=== PATIENT | male | born 1965 | race American Indian/Alaskan Native ===

== ENCOUNTER 2019-05-07 17:38 | Inpatient (IN) | payer BC ==
--- NOTE | 2019-05-07 17:48 | Emergency Department Report ---
ED Neuro Deficit HPI - General Stated Complaint: STROKE Source: patient, EMS Mode of arrival: Stretcher Limitations: No Limitations - History of Present Illness Initial Comments: 53-year-old male with a past medical history of hypertension and obesity presents to the hospital with stroke symptoms. Symptoms onset about 5:10-5:15 PM. Patient was outside grilling in the heat and was done cooking and came inside to cool off. He sat on the couch and his noticed that he was less responsive. He was diaphoretic and with slurred speech but would not make eye contact with his . Upon EMS arrival patient had a left sided weakness and cannot lift up his left arm and had slurred speech with left-sided facial droop. They did not test leg strength prior to arrival. Half way in route to the hosp ital patient's speech cleared and weakness improved. Patient now presents to the hospital with resolution of neurologic symptoms. Accu-Chek 140 upon arrival. Patient does not take an aspirin daily. He did have 2 beers and did smoke cigarettes today. Patient has been compliant with his blood pressure medication last dose today. No previous history of CVA or cardiac disease. PMD: Dr Laguna - Related Data Home Medications: Home Medications Medication Instructions Recorded Confirmed Last Taken Amlodipine Besylate/Valsartan 1 each PO QDAY 05/07/19 05/07/19 05/07/19 [Amlodipine-Valsartan 5-160 mg] Allergies/Adverse Reactions: Allergies Allergy/AdvReac Type Severity Reaction Status Date / Time No Known Allergies Allergy Unverified 05/07/19 17:43 ED Review of Systems ROS: Stated complaint: STROKE Other details as noted in HPI Comment: All other systems reviewed and negative ED Past Medical Hx - Medications Home Medications: Home Medications Medication Instructions Recorded Confirmed Last Taken Type Amlodipine Besylate/Valsartan 1 each PO QDAY 05/07/19 05/07/19 05/07/19 History [Amlodipine-Valsartan 5-160 mg] ED Neuro Physical Exam - General Suspected Stroke: Yes - NIHSS Assessment Interval: Baseline 1a. Level of Consciousness: alert/keenly responsive 1b. LOC Questions: answers both correctly 1c. LOC Commands: performs tasks correctly 2. Best Gaze: normal 3. Visual: no visual loss 4. Facial Palsy: normal symmetrical movement 5b. Motor Arm Right: no drift 5a. Motor Arm Left: no drift 6a. Motor Leg Left: no drift 6b. Motor Leg Right: no drift 7. Limb Ataxia: absent 8. Sensory: normal 9. Best Language: no aphasia 10. Dysarthria: normal 11. Extinction/Inattention: no abnormality Total Score: 0 Stroke Severity: No Stroke Symptoms - Other Other exam information: General: No limitations, patient is alert in no acute distress Head exam: Atraumatic, normocephalic Eyes exam: Normal appearance, pupils equal reactive to light, extraocular movements intact ENT: Moist mucous membrane, normal oropharynx Neck exam: Normal inspection, full range of motion, no meningismus nontender Respiratory exam: Clear to auscultation bilateral, no wheezes, rales, crackles Cardiovascular: Normal rate and rhythm, normal heart sounds Abdomen: Soft, nondistended, and nontender, with normal bowel sounds, no rebound, or guarding Extremity: Full range of motion normal inspection no deformity Back: Normal Inspection, full range of motion, no tenderness Neurologic: Alert, oriented x3, cranial nerves intact, no motor or sensory deficit Psychiatric: normal affect, normal mood Skin: Warm, dry, intact ED Course Vital Signs 05/07/19 05/07/19 18:16 18:17 Temperature 98.6 F Pulse Rate 90 Respiratory 19 19 Rate Blood Pressure 125/70 [Left] O2 Sat by Pulse 91 91 Oximetry - Consultations Consultation #1: 05/07/19 see Neuro consult note - Lab Data Result diagrams: 05/07/19 18:02 05/07/19 18:02 Lab Results 05/07/19 05/07/19 05/07/19 Range/Units 17:49 18:02 18:02 WBC 11.6 H (4.5-11.0) K/mm3 RBC 4.87 (3.65-5.03) M/mm3 Hgb 15.4 H (11.8-15.2) gm/dl Hct 45.3 (35.5-45.6) % MCV 93 (84-94) fl MCH 32 (28-32) pg MCHC 34 (32-34) % RDW 15.3 H (13.2-15.2) % Plt Count 195 (140-440) K/mm3 Lymph % (Auto) 21.8 (13.4-35.0) % [place] % (Auto) 8.1 H (0.0-7.3) % Eos % (Auto) 1.7 (0.0-4.3) % Baso % (Auto) 1.0 (0.0-1.8) % Lymph # 2.5 (1.2-5.4) K/mm3 [place] # 0.9 H (0.0-0.8) K/mm3 Eos # 0.2 (0.0-0.4) K/mm3 Baso # 0.1 (0.0-0.1) K/mm3 Seg Neutrophils % 67.4 (40.0-70.0) % Seg Neutrophils # 7.9 H (1.8-7.7) K/mm3 PT 13.6 (12.2-14.9) Sec. INR 1.07 (0.87-1.13) APTT 25.0 (24.2-36.6) Sec. Thrombin Time (15.1-19.6) Sec. Sodium (137-145) mmol/L Potassium (3.6-5.0) mmol/L Chloride (98-107) mmol/L Carbon Dioxide (22-30) mmol/L Anion Gap mmol/L BUN (9-20) mg/dL Creatinine (0.8-1.5) mg/dL Estimated GFR ml/min BUN/Creatinine Ratio % Glucose (75-100) mg/dL POC Glucose 140 H (70-105) Calcium (8.4-10.2) mg/dL Troponin T (0.00-0.029) ng/mL 05/07/19 05/07/19 Range/Units 18:02 18:02 WBC (4.5-11.0) K/mm3 RBC (3.65-5.03) M/mm3 Hgb (11.8-15.2) gm/dl Hct (35.5-45.6) % MCV (84-94) fl MCH (28-32) pg MCHC (32-34) % RDW (13.2-15.2) % Plt Count (140-440) K/mm3 Lymph % (Auto) (13.4-35.0) % [place] % (Auto) (0.0-7.3) % Eos % (Auto) (0.0-4.3) % Baso % (Auto) (0.0-1.8) % Lymph # (1.2-5.4) K/mm3 [place] # (0.0-0.8) K/mm3 Eos # (0.0-0.4) K/mm3 Baso # (0.0-0.1) K/mm3 Seg Neutrophils % (40.0-70.0) % Seg Neutrophils # (1.8-7.7) K/mm3 PT (12.2-14.9) Sec. INR (0.87-1.13) APTT (24.2-36.6) Sec. Thrombin Time 14.9 L (15.1-19.6) Sec. Sodium 140 (137-145) mmol/L Potassium 4.1 (3.6-5.0) mmol/L Chloride 98.6 (98-107) mmol/L Carbon Dioxide 28 (22-30) mmol/L Anion Gap 18 mmol/L BUN 18 (9-20) mg/dL Creatinine 1.9 H (0.8-1.5) mg/dL Estimated GFR 45 ml/min BUN/Creatinine Ratio 9 % Glucose 154 H (75-100) mg/dL POC Glucose (70-105) Calcium 9.6 (8.4-10.2) mg/dL Troponin T < 0.010 (0.00-0.029) ng/mL - EKG Data -: EKG Interpreted by Or EKG shows normal: sinus rhythm, axis (qrs 28), QRS complexes (qrsd 97), ST-T waves (lvh with lat t wave inv) When compared to previous EKG there are: previous EKG unavailable - Radiology Data Radiology results: report reviewed CT scan of the brain: INDICATION: neuro deficits <6hrs; sx present upon awakening. TECHNIQUE: Routine CT head without contrast. Sagittal and coronal reformatted i mages were obtained. All CT scans at this location are performed using CT dose reduction for ALARA by means of automated exposure control. COMPARISON: None. FINDINGS: BRAIN / INTRACRANIAL CONTENTS: No acute hemorrhage, mass effect, midline shift, hydrocephalus, or acute, large territorial infarct. Encephalomalacia is seen in the left corpus stratum with compensatory enlargement of left frontal horn. No significant white matter abnormality. CRANIOCERVICAL JUNCTION: No significant abnormality. ORBITS: No significant abnormality of visualized orbits. SINUSES / MASTOIDS: Mucosal thickening is seen in some of the ethmoid air cells and in the right sphenoid sinus. Middle ear cavity and mastoid air cells are normal. ADDITIONAL FINDINGS: None. IMPRESSION: Encephalomalacia in the left corpus stratum I do not see an acute parenchymal lesion in the brain. - Medical Decision Making tia vs heat exhaustion ct unremarkable back to baseline asa given hospitalist informed to admit - Differential Diagnosis TIA, CVA, dehydration, ICH, heat exhaustion, hypoglycemia - Thrombolytic Inclusion/Exclusion Thrombolytic Contraindications: Rapidily Improving s/s Critical Care Time: No Critical care attestation.: If time is entered above; I have spent that time in minutes in the direct care of this critically ill patient, excluding procedure time. ED Disposition Clinical Impression: Transient neurologic deficit Disposition: DC-09 OP ADMIT IP TO THIS HOSP Is pt being admited?: Yes Does the pt Need Aspirin: Yes Condition: Stable Time of Disposition: 18:40 (Dr Castro/hosp)
[2019-05-07 18:10] LABS: Basophils # (Auto) 0.1 K/mm3 (0.0-0.1); Eosinophils # (Auto) 0.2 K/mm3 (0.0-0.4); Eosinophils % (Auto) 1.7 % (0.0-4.3); Hematocrit 45.3 % (35.5-45.6); Hemoglobin 15.4 gm/dl (11.8-15.2); Lymphocytes # (Auto) 2.5 K/mm3 (1.2-5.4); Lymphocytes % (Auto) 21.8 % (13.4-35.0); Mean Corpuscular HGB Conc 34 % (32-34); Mean Corpuscular Volume 93 fl (84-94); Monocytes # (Auto) 0.9 K/mm3 (0.0-0.8); Monocytes % (Auto) 8.1 % (0.0-7.3); Platelet Count 195 K/mm3 (140-440); Red Blood Count 4.87 M/mm3 (3.65-5.03); Red Cell Distribution Width 15.3 % (13.2-15.2)
--- NOTE | 2019-05-07 18:12 | Cat Scan Report ---
CT scan of the brain: INDICATION: neuro deficits <6hrs; sx present upon awakening. TECHNIQUE: Routine CT head without contrast. Sagittal and coronal reformatted images were obtained. A ll CT scans at this location are performed using CT dose reduction for ALARA by means of automated ex posure control. COMPARISON: None. FINDINGS: BRAIN / INTRACRANIAL CONTENTS: No acute hemorrhage, mass effect, midline shift, hydrocephalus, or acu te, large territorial infarct. Encephalomalacia is seen in the left corpus stratum with compensatory enlargement of left frontal horn. No significant white matter abnormality. CRANIOCERVICAL JUNCTION: No significant abnormality. ORBITS: No significant abnormality of visualized orbits. SINUSES / MASTOIDS: Mucosal thickening is seen in some of the ethmoid air cells and in the right sphe noid sinus. Middle ear cavity and mastoid air cells are normal. ADDITIONAL FINDINGS: None. IMPRESSION: Encephalomalacia in the left corpus stratum I do not see an acute parenchymal lesion in the brain. Signer Name: Tamiko Haskins MD Signed: 05/07/2019 6:08 PM Workstation Name: [id number]
[2019-05-07 18:22] LABS: INR 1.07 (0.87-1.13)
--- NOTE | 2019-05-07 18:25 | Consultation ---
History of Present Illness Consult date: 05/07/19 Requesting physician: SUNDAR PENNINGTON Reason for Consult: stroke alert Chief complaint: Left face and arm weakness, now resolved History of present illness: 53 yo male- outside bbq, collapsed, fell down and was altered, lethargic, had left drywall taper helper weak, left face droop, and slurred speech; took BP medication today; around the time they were pulling out he is back to normal per EMS; 1710 hrs LKN; he had 2 beers today and does smoke cigarettes, denies any drug use No h/o stroke; Medications and Allergies Allergies Allergy/AdvReac Type Severity Reaction Status Date / Time No Known Allergies Allergy Unverified 05/07/19 17:43 Physical Examination - Vital Signs Vital Signs: Vital Signs Temp Pulse Resp BP Pulse Ox 98.6 F 90 19 125/70 91 05/07/19 18:16 05/07/19 18:16 05/07/19 18:16 05/07/19 18:16 05/07/19 18:16 - Assessment Assessment Interval: Baseline - Level of Consciousness 1a. Level of Consciousness: alert/keenly responsive - LOC Questions 1b. LOC Questions: answers both correctly - LOC Command 1c. LOC Commands: performs tasks correctly - Best Gaze 2. Best Gaze: normal - Visual 3. Visual: no visual loss - Facial Palsy 4. Facial Palsy: normal symmetrical movement - Motor Arm 5a. Motor Arm Left: no drift 5b. Motor Arm Right: no drift - Motor Leg 6a. Motor Leg Left: no drift 6b. Motor Leg Right: no drift - Limb Ataxia 7. Limb Ataxia: absent - Sensory 8. Sensory: normal - Best Language 9. Best Language: no aphasia - Dysarthria 10. Dysarthria: normal - Extinction and Inattention 11. Extinction/Inattention: no abnormality - Scoring Total Score: 0 Stroke Severity: No Stroke Symptoms Results - Laboratory Findings CBC and BMP: 05/07/19 18:02 Abnormal Lab Findings: Abnormal Labs 05/07/19 05/07/19 17:49 18:02 WBC 11.6 H Hgb 15.4 H RDW 15.3 H [place] % (Auto) 8.1 H [place] # 0.9 H Seg Neutrophils # 7.9 H POC Glucose 140 H - Diagnostic Findings Additional findings: CT head with encephalomalacia in left BG; no bleed Assessment and Plan [facility] Tele[facility] Consult [facility] Impression: r/o stroke vs TIA HTN evidence of old stroke on CT Recommendations: no tpa due to resolved symptoms not an LVO aspirin now and daily MRI brain, MRA H/N echo, fasting lipids, A1C, telemetry quit smoking neurology consult inpatient for w/u d/w ED doc at bedside Rebecca Hooper MD [employer] metrics: date of eval 05/07/19 LKN 1710 door: 1740 ts called 1728 ts connected 1731 NIHSS 1740 Medical Decision Making: - Extensive number of diagnosis or management options are considered above. - Extensive amount of complex data reviewed. - High risk of complication and/or morbidity or mortality are associated with differential diagnostic considerations above. - There may be uncertain outcome and increased probability of prolonged functional impairment or high probability of severe prolonged functional imp airment associated with some of these differential diagnosis. Medical Data Reviewed: 1.Data reviewed include clinical labs, radiology, Medical Tests; 2.Tests results discussed w/performing or interpreting physician; 3.Obtaining/reviewing old medical records; 4.Obtaining case history from another source; 5.Independent review of image, tracing or specimen. Patient was informed the Neurology Consult would happen via[facility]ult by way of interactive audio and video telecommunicationsand consented to receiving care in this manner.
[2019-05-07 18:29] LABS: BUN/Creatinine Ratio 9; Blood Urea Nitrogen 18 mg/dL (9-20); Calcium 9.6 mg/dL (8.4-10.2); Hemolysis Index 7
[2019-05-07] MEDS ORDERED: ASPIRIN PO ONE (18:39)
[2019-05-07] MEDS ORDERED: PERCOCET 5/325 PO PRN (19:50)
[2019-05-07] MEDS ORDERED: TYLENOL PO PRN ×2 (19:50)
[2019-05-07] MEDS ORDERED: DULCOLAX PR PRN (19:50)
[2019-05-07] MEDS ORDERED: PHENERGAN PR PRN (19:50)
[2019-05-07] MEDS ORDERED: MILK OF MAGNESIA PO PRN (19:50)
[2019-05-07] MEDS ORDERED: REGLAN PO PRN (19:50)
[2019-05-07] MEDS ORDERED: ZOFRAN IV PRN ×2 (19:50)
[2019-05-07] MEDS ORDERED: SODIUM CHLORIDE FLUSH SYRINGE 10 ML IV PRN ×2 (19:50)
--- NOTE | 2019-05-07 20:19 | History and Physical Report ---
<JENNIFER ADAME - Last Filed: 05/07/19 20:41> History of Present Illness Date of examination: 05/07/19 Date of admission: 05/07/19 18:40 Chief complaint: Slurred speech, left-sided weakness History of present illness: 53-year-old -[place]og[place] male who is an ongoing smoker with history of hypertension who presents to [facility] ED with complaints of slurred speech and facial droop. Patient was admitted formally geri simms and decided to go inside to cool off. Approximately 510 to 5:15 PM patient sat on the couch and his noticed that he was diaphoretic, with slurred speech, left facial droop, and left upper extremity weakness. Symptoms were also witnessed by EMS. Patient's symptoms began to resolve while in route to our facility. Admits: Social drinking (2 beers today), medication compliance Denies: Visual disturbances, headache, fever, nausea, vomiting, diarrhea, gait dysfunction Past History Past Medical History: hypertension Past Surgical History: No surgical history Social history: , lives with family, smoking (3-4 cigarettes per day), other (social drinking) Family history: no significant family history Medications and Allergies Allergies Allergy/AdvReac Type Severity Reaction Status Date / Time No Known Allergies Allergy Unverified 05/07/19 17:43 Home Medications Medication Instructions Recorded Confirmed Last Taken Type Amlodipine Besylate/Valsartan 1 each PO QDAY 05/07/19 05/07/19 05/07/19 History [Amlodipine-Valsartan 5-160 mg] Aspirin 325 mg PO QDAY #30 tablet 05/08/19 Unknown Rx AtorvaSTATin [Lipitor] 40 mg PO QHS #30 tablet 05/08/19 Unknown Rx hydrALAZINE [Apresoline TAB] 100 mg PO TID #90 tab 05/08/19 Unknown Rx Active Meds: Active Medications Acetaminophen (Tylenol) 650 mg PO Q4H PRN PRN Reason: Pain MILD(1-3)/Fever >100.5/HUDSON Acetaminophen (Tylenol) 650 mg PO Q4H PRN PRN Reason: Pain, Mild (1-3) Aspirin (Aspirin) 325 mg PO QDAY KARTIK Atorvastatin Calcium (Lipitor) 40 mg PO QHS KARTIK Bisacodyl (Dulcolax) 10 mg RI QDAY PRN PRN Reason: Constipation Magnesium Hydroxide (Milk Of Magnesia) 30 ml PO Q4H PRN PRN Reason: Constipation Metoclopramide HCl (Reglan) 10 mg PO Q6H PRN PRN Reason: Nausea And Vomiting Miscellaneous Medication (Amlodipine Besylate/Valsartan [Amlodipine-Valsartan 5- 160 Mg]) 1 each PO QDAY KARTIK Ondansetron HCl (Zofran) 4 mg IV Q8H PRN PRN Reason: Nausea And Vomiting Ondansetron HCl (Zofran) 4 mg IV Q8H PRN PRN Reason: Nausea And Vomiting Oxycodone/Acetaminophen (Percocet 5/325) 1 tab PO Q6H PRN PRN Reason: Pain, Moderate (4-6) Promethazine HCl (Phenergan) 25 mg RI Q6H PRN PRN Reason: Nausea And Vomiting Sodium Chloride (Sodium Chloride Flush Syringe 10 Ml) 10 ml IV BID KARTIK Sodium Chloride (Sodium Chloride Flush Syringe 10 Ml) 10 ml IV PRN PRN PRN Reason: LINE FLUSH Sodium Chloride (Sodium Chloride Flush Syringe 10 Ml) 10 ml IV PRN PRN PRN Reason: LINE FLUSH Review of Systems All systems: negative (reviewed and no additional remarkable complaints except as noted below) Neurological: transient paralysis, change in speech Exam - Physical Exam Narrative exam: Physical exam General appearance: Present: No acute distress, alert and oriented 3, well- developed, well-nourished pleasant male - EENT Eyes: Present: PERRL, EOM intact ENT: hearing intact, normal dentition - Neck Neck: Present: supple, normal ROM - Respiratory Respiratory effort: Non-labored Respiratory: Clear throughout - Cardiovascular Heart rate: 87 (bpm) Rhythm: Sinus rhythm, Sinus abnormalities Heart Sounds: Present: S1 & S2. Absent: rub, click - Extremities Extremities: no ischemia, pulses intact, - Peripheral Assessment Peripheral Pulses: within normal limits - Abdominal General gastrointestinal: soft, non-tender, normal bowel sounds - Integumentary Integumentary: Present: warm, dry - Musculoskeletal Musculoskeletal: 5/5 strength in upper and lower extremities, able to move all extremities -Neurological Neurological: CN II-XII intact - Psychiatric Psychiatric: Appropriate situation, cooperative - Constitutional Vitals: Temp Pulse Resp BP Pulse Ox 98.6 F 82 12 124/64 95 05/07/19 18:16 05/07/19 19:00 05/07/19 19:00 05/07/19 19:00 05/07/19 19:00 Results - Labs CBC & Chem 7: 05/07/19 18:02 05/07/19 18:02 Labs: Laboratory Last Values WBC 11.6 K/mm3 (4.5-11.0) H 05/07/19 18:02 RBC 4.87 M/mm3 (3.65-5.03) 05/07/19 18:02 Hgb 15.4 gm/dl (11.8-15.2) H 05/07/19 18:02 Hct 45.3 % (35.5-45.6) 05/07/19 18:02 MCV 93 fl (84-94) 05/07/19 18:02 MCH 32 pg (28-32) 05/07/19 18:02 MCHC 34 % (32-34) 05/07/19 18:02 RDW 15.3 % (13.2-15.2) H 05/07/19 18:02 Plt Count 195 K/mm3 (140-440) 05/07/19 18:02 Lymph % (Auto) 21.8 % (13.4-35.0) 05/07/19 18:02 [place] % (Auto) 8.1 % (0.0-7.3) H 05/07/19 18:02 Eos % (Auto) 1.7 % (0.0-4.3) 05/07/19 18:02 Baso % (Auto) 1.0 % (0.0-1.8) 05/07/19 18:02 Lymph # 2.5 K/mm3 (1.2-5.4) 05/07/19 18:02 [place] # 0.9 K/mm3 (0.0-0.8) H 05/07/19 18:02 Eos # 0.2 K/mm3 (0.0-0.4) 05/07/19 18:02 Baso # 0.1 K/mm3 (0.0-0.1) 05/07/19 18:02 Seg Neutrophils % 67.4 % (40.0-70.0) 05/07/19 18:02 Seg Neutrophils # 7.9 K/mm3 (1.8-7.7) H 05/07/19 18:02 PT 13.6 Sec. (12.2-14.9) 05/07/19 18:02 INR 1.07 (0.87-1.13) 05/07/19 18:02 APTT 25.0 Sec. (24.2-36.6) 05/07/19 18:02 14.9 Sec. (15.1-19.6) L 05/07/19 18:02 Sodium 140 mmol/L (137-145) 05/07/19 18:02 Potassium 4.1 mmol/L (3.6-5.0) 05/07/19 18:02 Chloride 98.6 mmol/L (98-107) 05/07/19 18:02 Carbon Dioxide 28 mmol/L (22-30) 05/07/19 18:02 18 mmol/L 05/07/19 18:02 BUN 18 mg/dL (9-20) 05/07/19 18:02 1.9 mg/dL (0.8-1.5) H 05/07/19 18:02 Estimated GFR 45 ml/min 05/07/19 18:02 9 % 05/07/19 18:02 Glucose 154 mg/dL (75-100) H 05/07/19 18:02 POC Glucose 140 (70-105) H 05/07/19 17:49 Calcium 9.6 mg/dL (8.4-10.2) 05/07/19 18:02 < 0.010 ng/mL (0.00-0.029) 05/07/19 18:02 - Imaging and Cardiology Imaging and Cardiology: CT Head (without contrast): Findings: BRAIN / INTRACRANIAL CONTENTS: No acute hemorrhage, mass effect, midline shift, hydrocephalus, or acute, large territorial infarct. Encephalomalacia is seen in the left corpus stratum with compensatory enlargement of left frontal horn. No significant white matter abnormality. CRANIOCERVICAL JUNCTION: No significant abnormality. ORBITS: No significant abnormality of visualized orbits. SINUSES / MASTOIDS: Mucosal thickening is seen in some of the ethmoid air cells and in the right sphenoid sinus. Middle ear cavity and mastoid air cells are normal. ADDITIONAL FINDINGS: None. IMPRESSION: Encephalomalacia in the left corpus stratum I do not see an acute parenchymal lesion in the brain. Assessment and Plan Assessment and plan: 53-year-old -[place] male who is an ongoing smoker with history of hypertension who presents to [facility] ED with complaints of facial droop, slurred speech and left upper extremity weakness for approximately 20-25 minutes. Upon arrival to our facilities patient's symptoms resolved. CT head did not reveal any acute hemorrhage, mass effect, midline shift, hydrocephalus, or acute, large territorial infarct, but showed encephalomalacia is seen in the left corpus stratum with compensatory enlargement of left frontal horn. Telemetry health neurology was consulted. Patient will be admitted to telemetry for further neurological workup and evaluation. Inpatient neurology has been consult. TIA Heat exhaustion- less likely Dehydration CKD3 Mild leukocytosis Hypertension Tobacco abuse Plan: Continue supportive care Initiate stroke protocol Neurology consulted MRI/MRA brain pending Echocardiogram pending Bilateral carotid duplex pending Lipid panel and HgbA1c pending Hydrate with NS @ 100ml/hr Start ASA 325mg, Lipitor 40 mg daily at bedtime Lipid panel pending Monitor BP Resume home antihypertensive medication: Norvasc and losartan Monitor renal function Avoid for toxic agents Creatinine this admission and 1.9 with GFR 45, baseline creatinine unknown highly suspicious of chronic renal failure Nephrology consulted Counseled for smoking cessation, nicotine patch refused DVT PPX on heparin and SCD's Advance Directives: No VTE prophylaxis?: Chemical Plan of care discussed with patient/family: Yes <EUSEBIO ALFARO S - Last Filed: 05/08/19 15:57> History of Present Illness Date of admission: 05/07/19 18:40 Medications and Allergies Active Meds: Active Medications Acetaminophen (Tylenol) 650 mg PO Q4H PRN PRN Reason: Pain MILD(1-3)/Fever >100.5/HUDSON Amlodipine Besylate (Norvasc) 10 mg PO QDAY [facility] Last Admin: 05/08/19 12:00 Dose: 5 mg Documented by: Aspirin (Aspirin) 325 mg PO QDAY [facility] Last Admin: 05/08/19 10:24 Dose: 325 mg Documented by: Atorvastatin Calcium (Lipitor) 40 mg PO QHS [facility] Last Admin: 05/07/19 21:14 Dose: 40 mg Documented by: Heparin Sodium (Porcine) (Heparin) 5,000 unit SUB-Q Q12HR [facility] Last Admin: 05/08/19 10:23 Dose: 5,000 unit Documented by: Hydralazine HCl (Apresoline) 10 mg IV Q4H PRN PRN Reason: Hypertension Magnesium Hydroxide (Milk Of Magnesia) 30 ml PO Q4H PRN PRN Reason: Constipation Ondansetron HCl (Zofran) 4 mg IV Q8H PRN PRN Reason: Nausea And Vomiting Oxycodone/Acetaminophen (Percocet 5/325) 1 tab PO Q6H PRN PRN Reason: Pain, Moderate (4-6) Sodium Chloride (Sodium Chloride Flush Syringe 10 Ml) 10 ml IV BID [facility] Last Admin: 05/08/19 10:31 Dose: 10 ml Documented by: Sodium Chloride (Sodium Chloride Flush Syringe 10 Ml) 10 ml IV PRN PRN PRN Reason: LINE FLUSH Valsartan (Diovan) 160 mg PO QDAY [facility] Last Admin: 05/08/19 10:24 Dose: 160 mg Documented by: Exam - Constitutional Vitals: Temp Pulse Resp BP Pulse Ox 98.0 F 68 18 178/98 95 05/08/19 15:02 05/08/19 15:02 05/08/19 15:02 05/08/19 15:02 05/08/19 15:02 Results - Labs CBC & Chem 7: 05/08/19 03:49 05/08/19 03:49 Labs: Laboratory Last Values WBC 8.7 K/mm3 (4.5-11.0) 05/08/19 03:49 RBC 4.46 M/mm3 (3.65-5.03) 05/08/19 03:49 Hgb 14.1 gm/dl (11.8-15.2) 05/08/19 03:49 Hct 42.2 % (35.5-45.6) 05/08/19 03:49 MCV 95 fl (84-94) H 05/08/19 03:49 MCH 32 pg (28-32) 05/08/19 03:49 MCHC 33 % (32-34) 05/08/19 03:49 RDW 15.4 % (13.2-15.2) H 05/08/19 03:49 Plt Count 160 K/mm3 (140-440) 05/08/19 03:49 Lymph % (Auto) 27.1 % (13.4-35.0) 05/08/19 03:49 [place] % (Auto) 12.2 % (0.0-7.3) H 05/08/19 03:49 Eos % (Auto) 3.9 % (0.0-4.3) 05/08/19 03:49 Baso % (Auto) 0.6 % (0.0-1.8) 05/08/19 03:49 Lymph # 2.4 K/mm3 (1.2-5.4) 05/08/19 03:49 [place] # 1.1 K/mm3 (0.0-0.8) H 05/08/19 03:49 Eos # 0.3 K/mm3 (0.0-0.4) 05/08/19 03:49 Baso # 0.1 K/mm3 (0.0-0.1) 05/08/19 03:49 Seg Neutrophils % 56.2 % (40.0-70.0) 05/08/19 03:49 Seg Neutrophils # 4.9 K/mm3 (1.8-7.7) 05/08/19 03:49 PT 13.6 Sec. (12.2-14.9) 05/07/19 18:02 INR 1.07 (0.87-1.13) 05/07/19 18:02 APTT 25.0 Sec. (24.2-36.6) 05/07/19 18:02 14.9 Sec. (15.1-19.6) L 05/07/19 18:02 Sodium 138 mmol/L (137-145) 05/08/19 03:49 Potassium 4.3 mmol/L (3.6-5.0) 05/08/19 03:49 Chloride 100.4 mmol/L (98-107) 05/08/19 03:49 Carbon Dioxide 26 mmol/L (22-30) 05/08/19 03:49 16 mmol/L 05/08/19 03:49 BUN 19 mg/dL (9-20) 05/08/19 03:49 1.4 mg/dL (0.8-1.5) 05/08/19 03:49 Estimated GFR > 60 ml/min 05/08/19 03:49 14 % 05/08/19 03:49 Glucose 162 mg/dL (75-100) H 05/08/19 03:49 POC Glucose 140 (70-105) H 05/07/19 17:49 6.6 % (4-6) H 05/08/19 03:49 Calcium 8.8 mg/dL (8.4-10.2) 05/08/19 03:49 < 0.010 ng/mL (0.00-0.029) 05/07/19 18:02 Triglycerides 200 mg/dL (2-149) H 05/08/19 03:49 Cholesterol 204 mg/dL (50-199) H 05/08/19 03:49 157 mg/dL (50-130) H 05/08/19 03:49 16 mg/dL (40-59) L 05/08/19 03:49 12.75 % 05/08/19 03:49 Assessment and Plan Assessment and plan: SALOMÓN---IV fluids for now.ATN Recheck Creatinine level
[2019-05-07] MEDS: NACL 0.9% 1000 ML 1,000 ML IV SCH (21:13)
[2019-05-07] MEDS: HEPARIN SUB-Q SCH (21:14)
[2019-05-07] MEDS: SODIUM CHLORIDE FLUSH SYRINGE 10 ML IV SCH (21:22)
[2019-05-08 05:27] LABS: Basophils # (Auto) 0.1 K/mm3 (0.0-0.1); Basophils % (Auto) 0.6 % (0.0-1.8); Eosinophils # (Auto) 0.3 K/mm3 (0.0-0.4); Eosinophils % (Auto) 3.9 % (0.0-4.3); Hematocrit 42.2 % (35.5-45.6); Hemoglobin 14.1 gm/dl (11.8-15.2); Lymphocytes # (Auto) 2.4 K/mm3 (1.2-5.4); Lymphocytes % (Auto) 27.1 % (13.4-35.0); Mean Corpuscular HGB Conc 33 % (32-34); Mean Corpuscular Volume 95 fl (84-94); Monocytes # (Auto) 1.1 K/mm3 (0.0-0.8); Monocytes % (Auto) 12.2 % (0.0-7.3); Platelet Count 160 K/mm3 (140-440); Red Blood Count 4.46 M/mm3 (3.65-5.03); Red Cell Distribution Width 15.4 % (13.2-15.2)
[2019-05-08 06:44] LABS: BUN/Creatinine Ratio 14; Blood Urea Nitrogen 19 mg/dL (9-20); Calcium 8.8 mg/dL (8.4-10.2); Chol/HDL Ratio 12.75 %; HDL Cholesterol 16 mg/dL (40-59); Hemolysis Index 8; LDL Cholesterol,Direct 157 mg/dL (50-130)
[2019-05-08] MEDS: NACL 0.9% 1000 ML 1,000 ML IV SCH (07:14)
[2019-05-08] MEDS ORDERED: DIOVAN PO SCH (10:00)
[2019-05-08] MEDS ORDERED: ASPIRIN PO SCH (10:00)
[2019-05-08] MEDS ORDERED: NON-FORMULARY (Amlodipine Besylate/Valsartan [Amlodipine-Valsartan 5-160 Mg] 1 EACH) PO SCH (10:00)
[2019-05-08] MEDS ORDERED: NORVASC PO SCH ×2 (10:00→11:08)
[2019-05-08] MEDS: HEPARIN SUB-Q SCH (10:23)
[2019-05-08] MEDS: SODIUM CHLORIDE FLUSH SYRINGE 10 ML IV SCH (10:31)
[2019-05-08] MEDS ORDERED: APRESOLINE IV PRN (11:07)
[2019-05-08] MEDS ORDERED: APRESOLINE PO ONE (11:08)
--- NOTE | 2019-05-08 11:09 | Discharge Summary ---
Providers - Providers Date of Admission: 05/07/19 18:40 Date of discharge: 05/08/19 Attending physician: DENISE FRASER MD 05/07/19 Consult to Physician [CONS] Routine Comment: Consulting Provider: YASSINE HODGE Physician Instructions: Reason For Exam: ??stroke, probable TIA 05/07/19 19:50 Consult to Dietitian/Nutrition [CONS] Routine Physician Instructions: Reason For Exam: Reason for Consult: Nutrition Recommendations Reason for Consult: Diet education Occupational Therapy Evaluate and Treat [CONS] Routine Comment: Reason For Exam: Neuro deficits Physical Therapy Evaluation and Treat [CONS] Routine Comment: Reason For Exam: Neuro deficits 05/07/19 20:36 Consult to Physician [CONS] Routine Comment: Consulting Provider: DEEPAK ENAMORADO Physician Instructions: Reason For Exam: ckd, possible SALOMÓN [facility] Reason for admission: TIA, uncontrolled HTN Condition: Stable Pertinent studies: CT, MRI, MRA head Echo, rated Doppler Hospital course: 53-year-old -[place] male who is an ongoing smoker with history of hypertension who presents to [facility] ED with complaints of slurred speech and facial droop. Patient was admitted formally geri simms and decided to go inside to cool off. Approximately 510 to 5:15 PM patient sat on the couch and his noticed that he was diaphoretic, with slurred speech, left facial droop, and left upper extremity weakness. Symptoms were also witnessed by EMS. Patient's symptoms began to resolve while in route to our facility. when I saw this morning patient's symptoms resolved. And CT, MRI, MRA was done and no acute findings. There was evidence of chronic ischemia on the left cantu radiata area which was unnoticed by the patient, per neuro report. Patient admitted for TIA, symptoms resolved. Patient blood pressure was uncontr olled and adjust his medications. Neurology cleared the patient for discharge with aspirin and statin. Patient has hyperlipidemia. Patient advised to follow-up with his primary care physician adjust his medication. patient had SALOMÓN and nephrology consult appreciated. Disposition: - TO HOME OR SELFCARE Time spent for discharge: 32 minutes - Discharge Diagnoses (1) TIA (transient ischemic attack) Status: Acute (2) Transient neurologic deficit Status: Acute (3) Hypertension Status: Acute Core Measure Documentation - Palliative Care Palliative Care/ Comfort Measures: Not Applicable - Core Measures Any of the following diagnoses?: none Exam - Physical Exam Narrative exam: Not in cardiopulmonary distress. The patient is obese. Vital signs as documented. Head exam is unremarkable. No scleral icterus . Neck is without jugular venous distension, thyromegaly, or carotid bruits. Lungs are clear to auscultation. Cardiac exam reveals regular rate and Rhythm. First and second heart sounds normal. No murmurs, rubs or gallops. Abdominal exam reveals normal bowel sounds, no masses, no organomegaly and no aortic enlargement. Extremities are nonedematous and both femoral and pedal pulses are normal. 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 No focal weakness. - Constitutional Vitals: Temp Pulse Resp BP Pulse Ox 98.2 F 63 20 194/96 94 05/07/19 23:41 05/08/19 10:24 05/08/19 04:26 05/08/19 10:24 05/08/19 04:26 Plan Activity: no restrictions Weight Bearing Status: Full Weight Bearing Diet: low cholesterol, low salt Follow up with: LEWIS JOHNSTON MD [Primary Care Provider] - 7 Days Prescriptions: AtorvaSTATin [Lipitor] 40 mg PO QHS #30 tablet hydrALAZINE [Apresoline TAB] 100 mg PO TID #90 tab Aspirin 325 mg PO QDAY #30 tablet
--- NOTE | 2019-05-08 11:11 | Magnetic Resonance Report ---
MR brain wo con INDICATION / CLINICAL INFORMATION: stroke. TECHNIQUE: Multiplanar, multisequence MR images of the brain were obtained. COMPARISON: CT - 05/07/2019 FINDINGS: BRAIN / INTRACRANIAL CONTENTS: Subtle, increased diffusion signal seen in the periventricular white m atter region on the right, felt to be related to T2 shine through artifact from prior infarct. Lacuna r type infarcts are seen bilaterally in the anterior gangliocapsular regions-left more prominent than right. Otherwise, no acute ischemia, acute hemorrhage, mass effect, midline shift, or hydrocephalus. No chr onic infarct or atrophy. Minimal, nonspecific white matter disease seen in the cerebral hemispheres, which may be related to microangiopathy, given the patient's age. CRANIOCERVICAL JUNCTION: No significant abnormality. VASCULAR FLOW-VOIDS: No significant abnormality. ORBITS: No significant abnormality of visualized orbits. SINUSES / MASTOIDS: Moderate mucosal thickening seen in the ethmoids. There is also mild mucosal thic kening in the maxillary antra. ADDITIONAL FINDINGS: None. IMPRESSION: 1. No focal mass, hemorrhage, hydrocephalus, or acute ischemia. Signer Name: Denzel Nickerson MD, III Signed: 05/08/2019 11:07 AM Workstation Name: [id number]
--- NOTE | 2019-05-08 11:17 | Magnetic Resonance Report ---
MR MRA/MRV head wo con INDICATION: stroke; 53-year-old male with slurred speech; facial droop TECHNIQUE: 3-D time of flight. NASCET type criteria used to evaluate stenoses. COMPARISON: None available. FINDINGS: INTERNAL CAROTID ARTERIES: Short segment area of moderate to high-grade narrowing seen in the caver[place] us portion of the right internal carotid artery. The internal carotid arteries are otherwise widely p atent. VERTEBROBASILAR SYSTEM: No significant narrowing appreciated. The left vertebral artery is dominant w hen compared with the right. The right vertebral artery largely terminates in the right PICA territor y with only a small branch extending towards the basilar artery-this a normal variant. DISTAL BRANCHES: Distal branches of the anterior, middle, and posterior cerebral arteries are fairly symmetric in appearance and number. However, there are areas of short segment, mild to moderate narr owing in both posterior cerebral arteries, as well as the M1 segment of the right middle cerebral art carlos. ANEURYSM: None identified. IMPRESSION: Areas of narrowing, as described above. Signer Name: Denzel Nickerson MD, III Signed: 05/08/2019 11:12 AM Workstation Name: [id number]
--- NOTE | 2019-05-08 11:35 | Consultation ---
Past History Past Medical History: hypertension Past Surgical History: No surgical history Social history: , lives with family, smoking (3-4 cigarettes per day), other (social drinking) Family history: no significant family history Medications and Allergies Allergies Allergy/AdvReac Type Severity Reaction Status Date / Time No Known Allergies Allergy Unverified 05/07/19 17:43 Home Medications Medication Instructions Recorded Confirmed Last Taken Type Amlodipine Besylate/Valsartan 1 each PO QDAY 05/07/19 05/07/19 05/07/19 History [Amlodipine-Valsartan 5-160 mg] Aspirin 325 mg PO QDAY #30 tablet 05/08/19 Unknown Rx AtorvaSTATin [Lipitor] 40 mg PO QHS #30 tablet 05/08/19 Unknown Rx hydrALAZINE [Apresoline TAB] 100 mg PO TID #90 tab 05/08/19 Unknown Rx Active Meds: Active Medications Acetaminophen (Tylenol) 650 mg PO Q4H PRN PRN Reason: Pain MILD(1-3)/Fever >100.5/HUDSON Amlodipine Besylate (Norvasc) 10 mg PO QDAY [facility] Aspirin (Aspirin) 325 mg PO QDAY [facility] Last Admin: 05/08/19 10:24 Dose: 325 mg Documented by: Atorvastatin Calcium (Lipitor) 40 mg PO QHS [facility] Last Admin: 05/07/19 21:14 Dose: 40 mg Documented by: Heparin Sodium (Porcine) (Heparin) 5,000 unit SUB-Q Q12HR [facility] Last Admin: 05/08/19 10:23 Dose: 5,000 unit Documented by: Hydralazine HCl (Apresoline) 10 mg IV Q4H PRN PRN Reason: Hypertension Magnesium Hydroxide (Milk Of Magnesia) 30 ml PO Q4H PRN PRN Reason: Constipation Ondansetron HCl (Zofran) 4 mg IV Q8H PRN PRN Reason: Nausea And Vomiting Oxycodone/Acetaminophen (Percocet 5/325) 1 tab PO Q6H PRN PRN Reason: Pain, Moderate (4-6) Sodium Chloride (Sodium Chloride Flush Syringe 10 Ml) 10 ml IV BID [facility] Last Admin: 05/08/19 10:31 Dose: 10 ml Documented by: Sodium Chloride (Sodium Chloride Flush Syringe 10 Ml) 10 ml IV PRN PRN PRN Reason: LINE FLUSH Valsartan (Diovan) 160 mg PO QDAY [facility] Last Admin: 05/08/19 10:24 Dose: 160 mg Documented by: Physical Examination - Vital Signs Vital Signs: Vital Signs Pulse 88 05/07/19 18:08 Results - Laboratory Findings CBC and BMP: 05/08/19 03:49 05/08/19 03:49 Abnormal Lab Findings: Abnormal Labs 05/07/19 05/07/19 05/07/19 17:49 18:02 18:02 WBC 11.6 H Hgb 15.4 H MCV RDW 15.3 H [place] % (Auto) 8.1 H [place] # 0.9 H Seg Neutrophils # 7.9 H Thrombin Time Creatinine 1.9 H Glucose 154 H POC Glucose 140 H Hemoglobin A1c Triglycerides Cholesterol LDL Cholesterol Direct HDL Cholesterol 05/07/19 05/08/19 05/08/19 18:02 03:49 03:49 WBC Hgb MCV 95 H RDW 15.4 H [place] % (Auto) 12.2 H [place] # 1.1 H Seg Neutrophils # Thrombin Time 14.9 L Creatinine Glucose 162 H POC Glucose Hemoglobin A1c Triglycerides 200 H Cholesterol 204 H LDL Cholesterol Direct 157 H HDL Cholesterol 16 L 05/08/19 03:49 WBC Hgb MCV RDW [place] % (Auto) [place] # Seg Neutrophils # Thrombin Time Creatinine Glucose POC Glucose Hemoglobin A1c 6.6 H Triglycerides Cholesterol LDL Cholesterol Direct HDL Cholesterol Assessment and Plan Mr. Bonilla is a 53-year-old gentleman with a history of hypertension and no other known medical problem who developed an episode of sudden onset of left facial droop associated with weakness of left upper extremity on 05/07/2019. Patient states that he was involved in a barbecue and was exhausted and when he went to take a rest sitting in a couch his noted that his face was twisted and she detected that her had weakness of the left upper extremity. She also noticed some slurred speech. She called the EMS and when the patient got into the ambulance soon after that his symptoms resolved. When he arrived at the hospital he did not have any slurred speech, any numbness or weakness of the extremities or any facial droop. She was admitted on code stroke. Workup after admission showed increased triglyceride, increased LDL, decreased HDL and increased total cholesterol. CT scan of the brain showed old infarct on the left cantu radiata. CT scan did not show any acute infarct or hemorrhage. Physical examination. Patient is alert and appropriate. He has insight into h is problems and answers questions appropriately. Heart. Normal rate and rhythm. Carotids. Both palpebral. No bruits. Cranial nerves. Patient's pupils reacted to light and accommodation. Patient did not have any facial weakness or numbness extraocular movements are intact patient couldn't talk and swallow without any difficulty. Other cranial nerves are also within normal limits. Motor. Normal strength in all 4 extremities without any asymmetry between the right of the left side. Patient did not have any pronator drift. Coordination. Finger to nose were within normal limit on both sides Reflexes. There is no asymmetry of reflexes and all reflexes in both upper and lower extremities were within normal limits with downgoing toes on both sides Sensory. Sensory examination was grossly within normal limits. Gait. Patient is capable of ambulating without any assistive device. Impression. #1. Patient seems to have had a TIA. #2 patient also has evidence of a stroke on the left cantu radiata. #3. Hyperlipidemia and hypercholesterolemia. Recommendation. #1. Patient should take Aspirin 81 mg every day without any skipping. .#2 patient should be started on statin, #3. Patient was advised to avoid fatty food and food rich in cholesterol #4, patient was also advised to take flax seed 3-4 capsule a Day in Order to Increase his HDL #5. Patient has "obstructive sleep apnea" for which he should get a sleep study and use CPAP machine on a regular basis as obstructive sleep apnea is an independent risk factor for future stroke.
--- NOTE | 2019-05-08 12:20 | Vascular Lab Report ---
"DUPLEX DOPPLER ULTRASOUND CAROTID, BILATERAL INDICATION: Stroke, hypertension. FINDINGS: RIGHT CAROTID: Mild plaque Right CCA velocity: 84 cm/sec. Right ICA peak systolic velocity: 62 cm/sec. ICA/CCA PSV Ratio: 0.7. Right Vertebral Artery: Antegrade flow. LEFT CAROTID: Trace plaque. Left CCA velocity: 70 cm/sec. Left ICA peak systolic velocity: 78 cm/sec. ICA/CCA PSV Ratio: 1.1. Left Vertebral Artery: Antegrade flow. IMPRESSION: 1. Right Internal Carotid Artery: Less than 50% diameter stenosis. 2. Left Internal Carotid Artery: Less than 50% diameter stenosis. Velocity criteria are extrapolated from diameter data as defined by the Society of Radiologists in Ul trasound Consensus Conference, Radiology 2003; 229;340-346. Degree of Stenosis (%) || ICA PSV (cm/sec) || Plaque estimate (%) || ICA/CCA PSV Ratio Normal <125 None <2.0 <50 <125 <50 <2.0 50-69 125-230 50 2.0-4.0 70 but less than 100 >230 50 >4.0 Near occlusion High, low, or none visible variable Total occlusion None visible; no lumen N/A Signer Name: Declan Renteria MD Signed: 05/08/2019 12:16 PM Workstation Name: [email or web address]"
--- NOTE | 2019-05-08 13:59 | Consultation ---
History of Present Illness - Reason for Consult Consult date: 05/08/19 acute renal failure - History of Present Illness The patient is a 53 Yo male with history significant for Obesity, HTN, HLD and tobacco smoking who presented to [facility] ED with complaint of slurred speech and facial droop. His noticed that he was diaphoretic, with slurred speech, left facial droop, and left upper extremity weakness. Symptoms were also witnessed by EMS. Patient's symptoms began to resolve while enroute to ED. Patient denies any N, V, D, CP, sob, cough, dizziness, syncope or leg swelling. He was admitted for Acute CVA. Creatinine was 1.9 on admission. No prior h/o kidney disease. Nephrology was consulted for further evaluation. Past History Past Medical History: hypertension, hyperlipidemia Past Surgical History: No surgical history Social history: , lives with family, smoking (3-4 cigarettes per day), other (social drinking) Family history: no significant family history Medications and Allergies Allergies Allergy/AdvReac Type Severity Reaction Status Date / Time No Known Allergies Allergy Unverified 05/07/19 17:43 Home Medications Medication Instructions Recorded Confirmed Last Taken Type Amlodipine Besylate/Valsartan 1 each PO QDAY 05/07/19 05/07/19 05/07/19 History [Amlodipine-Valsartan 5-160 mg] Aspirin 325 mg PO QDAY #30 tablet 05/08/19 Unknown Rx AtorvaSTATin [Lipitor] 40 mg PO QHS #30 tablet 05/08/19 Unknown Rx hydrALAZINE [Apresoline TAB] 100 mg PO TID #90 tab 05/08/19 Unknown Rx Active Meds: Active Medications Acetaminophen (Tylenol) 650 mg PO Q4H PRN PRN Reason: Pain MILD(1-3)/Fever >100.5/HUDSON Amlodipine Besylate (Norvasc) 10 mg PO QDAY [facility] Last Admin: 05/08/19 12:00 Dose: 5 mg Documented by: Aspirin (Aspirin) 325 mg PO QDAY [facility] Last Admin: 05/08/19 10:24 Dose: 325 mg Documented by: Atorvastatin Calcium (Lipitor) 40 mg PO QHS [facility] Last Admin: 05/07/19 21:14 Dose: 40 mg Documented by: Heparin Sodium (Porcine) (Heparin) 5,000 unit SUB-Q Q12HR [facility] Last Admin: 05/08/19 10:23 Dose: 5,000 unit Documented by: Hydralazine HCl (Apresoline) 10 mg IV Q4H PRN PRN Reason: Hypertension Magnesium Hydroxide (Milk Of Magnesia) 30 ml PO Q4H PRN PRN Reason: Constipation Ondansetron HCl (Zofran) 4 mg IV Q8H PRN PRN Reason: Nausea And Vomiting Oxycodone/Acetaminophen (Percocet 5/325) 1 tab PO Q6H PRN PRN Reason: Pain, Moderate (4-6) Sodium Chloride (Sodium Chloride Flush Syringe 10 Ml) 10 ml IV BID [facility] Last Admin: 05/08/19 10:31 Dose: 10 ml Documented by: Sodium Chloride (Sodium Chloride Flush Syringe 10 Ml) 10 ml IV PRN PRN PRN Reason: LINE FLUSH Valsartan (Diovan) 160 mg PO QDAY [facility] Last Admin: 05/08/19 10:24 Dose: 160 mg Documented by: Review of Systems Constitutional: weakness, no weight loss, no weight gain, no fever, no chills, no anorexia Cardiovascular: high blood pressure, no chest pain, no orthopnea, no edema, no syncope, no shortness of breath, no dyspnea on exertion, no paroxysmal nocturnal dyspnea, no leg edema Respiratory: no cough, no hemoptysis, no shortness of breath, no dyspnea on exertion Gastrointestinal: no abdominal pain, no nausea, no vomiting, no diarrhea, no melena, no hematochezia Genitourinary Male: no dysuria, no hematuria Rectal: no bleeding Musculoskeletal: no muscle cramps Integumentary: no rash, no redness, no sores, no wounds, no jaundice Neurological: transient paralysis, no seizures, no syncope, no convulsions, no change in speech, no change in mentation, no confusion Psychiatric: no memory loss Exam - Vital Signs Vital signs: Vital Signs Pulse 88 05/07/19 18:08 - General Appearance General appearance: well-developed, well-nourished, appears stated age, other (no distress) EENT: ATNC, PERRL, mucous membranes moist, hearing intact, vision intact Neck: Present: neck supple, trachea midline Respiratory: Clear to Ascultation Heart: regular, S1S2, no murmurs Gastrointestinal: Present: normoactive bowel sounds. Absent: tenderness, distended Integumentary: no rash, warm and dry Neurologic: no focal deficit, no asterixis, alert and oriented x3 Musculoskeletal: Present: other (no edema) Results - Lab Results 05/08/19 03:49 05/08/19 03:49 Most recent lab results Calcium 8.8 mg/dL (8.4-10.2) 05/08/19 03:49 Assessment and Plan 1. Acute kidney injury: Likely vasomotor SALOMÓN in the setting of volume depletion. Urine studies ordered. Renal function is better today. Monitor renal function. Avoid nephrotoxic agents. Meds dosage based on GFR. If he is going home today will do Renal US as outpatient. 2. FEN: Monitor lytes. 3. Acute CVA. 4. Uncontrolled HTN: Increase Valsartan. Monitor BP. 5. Tobacco smoking: Counseled.
[2019-05-08 16:17] VITALS: BP 185/105
== END 2019-05-08 18:30 | disposition home or self-care (01) | DRG 640 ==
LOC: ED 17:38 → 4A 18:40
PROVIDERS: ADMIT Internal Medicine; ATTEND Internal Medicine
DX: E86.0 Dehydration (principal); N17.0 Acute kidney failure with tubular necrosis; G45.9 Transient cerebral ischemic attack, unspecified; N18.3 Chronic kidney disease, stage 3 (moderate); I12.9 Hypertensive chronic kidney disease with stage 1 through stage 4 chronic kidney disease, or unspecified chronic kidney disease; T67.5XXA Heat exhaustion, unspecified, initial encounter; E78.5 Hyperlipidemia, unspecified; F17.210 Nicotine dependence, cigarettes, uncomplicated; E78.00 Pure hypercholesterolemia, unspecified; G47.33 Obstructive sleep apnea (adult) (pediatric); R29.818 Other symptoms and signs involving the nervous system; Y93.89 Activity, other specified; Z72.89 Other problems related to lifestyle; Z91.14 Patient's other noncompliance with medication regimen; Z79.82 Long term (current) use of aspirin; Z79.899 Other long term (current) drug therapy; Y92.89 Other specified places as the place of occurrence of the external cause; Y99.8 Other external cause status; Z71.6 Tobacco abuse counseling
CPT/HCPCS: 36415; 70450; 70544; 70551; 80048; 80061; 82962; 83036; 84484; 85025; 85610; 85670; 85730; 93005; 93010; 93306; 93880; 99285; 99406; G0378; A9270-GY; J0360; J1644; J3246; J7030